=== PATIENT | female | born 1945 | race Two or more races ===

== ENCOUNTER 2017-09-24 07:08 | Outpatient (CLI) | payer OTHER ==
[~2017-09-24 07:08] MED LIST: ANTIVERT25 M1 PO; ASPIR-LOW81 MG PO; DILTIAZEM 24HR240 M1 PO; LEVOTHROID50 MCG PO; LOSARTAN-HCTZ1 EACH PO; NEURONTIN300 MG PO; PLAVIX75 MG PO; PRILOSEC40 MG PO
== END 2017-09-24 08:17 | disposition home or self-care (01) ==
LOC: NUCLEAR 07:08
DX: I20.1 Angina pectoris with documented spasm (principal)
CPT/HCPCS: 78452; 93017; A9500; J0153

== ENCOUNTER 2017-12-29 13:17 | Emergency (ER) | payer OTHER ==
[~2017-12-29] VITALS: Ht 172.7 cm; Wt 65.8 kg
== END 2017-12-29 18:02 | disposition home or self-care (01) ==
LOC: ER 13:17
DX: R53.1 Weakness (principal); R06.02 Shortness of breath; D64.89 Other specified anemias

== ENCOUNTER 2018-01-05 09:02 | Outpatient (CLI) | payer OTHER | END 2018-01-05 09:11 | disposition home or self-care (01) | LOC: NUCLEAR 09:02 | DX: I20.1 Angina pectoris with documented spasm (principal) ==

== ENCOUNTER 2018-01-06 13:04 | Inpatient (IN) | payer OTHER ==
[~2018-01-06] VITALS: Ht 172.7 cm; Wt 68.0 kg
[2018-02-03] MEDS ORDERED: NEURONTIN300 MG PO (11:34)
[2018-02-03] MEDS ORDERED: PLAVIX75 MG PO (11:34)
[2018-02-03] MEDS ORDERED: PRILOSEC OTC20 MG PO (11:34)
[2018-02-03] MEDS ORDERED: SERTRALINE HCL100 MG PO (11:34)
[2018-02-03] MEDS ORDERED: Coreg 3.125MG TABLET PO (11:34)
[2018-02-03] MEDS ORDERED: SPIRONOLACTONE50 MG PO (11:34)
[2018-02-03] MEDS ORDERED: FUROSEMIDE10 MG/1 M1 PO (11:34)
[2018-02-03] MEDS ORDERED: LOSARTAN-HCTZ1 EACH PO (11:34)
[2018-02-03] MEDS ORDERED: ASPIR-LOW81 MG PO (11:34)
== END 2018-02-03 13:17 | disposition home or self-care (01) | DRG 371 ==
LOC: ER 13:04 → SURH 20:42 → ICU 20:42 → ICU-2 20:42 → ICU 01-07 12:41 → SURH 01-22 21:46
PROC: BW25ZZZ Computerized Tomography (CT Scan) of Chest, Abdomen and Pelvis (ICD-10-PCS; 2018-01-08)
PROC: BW25YZZ Computerized Tomography (CT Scan) of Chest, Abdomen and Pelvis using Other Contrast (ICD-10-PCS; 2018-01-09)
PROC: 30233N1 Transfusion of Nonautologous Red Blood Cells into Peripheral Vein, Percutaneous Approach (ICD-10-PCS; 2018-01-09)
PROC: 3E0336Z Introduction of Nutritional Substance into Peripheral Vein, Percutaneous Approach (ICD-10-PCS; 2018-01-10)
PROC: BW25YZZ Computerized Tomography (CT Scan) of Chest, Abdomen and Pelvis using Other Contrast (ICD-10-PCS; 2018-01-18)
PROC: 0W9G30Z Drainage of Peritoneal Cavity with Drainage Device, Percutaneous Approach (ICD-10-PCS; principal; 2018-01-19)
PROC: B54MZZZ Ultrasonography of Right Upper Extremity Veins (ICD-10-PCS; 2018-01-20)
PROC: BW25Y0Z Computerized Tomography (CT Scan) of Chest, Abdomen and Pelvis using Other Contrast, Unenhanced and Enhanced (ICD-10-PCS; 2018-01-26)
DX: K35.3 Acute appendicitis with localized peritonitis (principal); I50.33 Acute on chronic diastolic (congestive) heart failure; J90 Pleural effusion, not elsewhere classified; J98.11 Atelectasis; I11.0 Hypertensive heart disease with heart failure; I25.10 Atherosclerotic heart disease of native coronary artery without angina pectoris; Z98.61 Coronary angioplasty status; Z88.0 Allergy status to penicillin; R42 Dizziness and giddiness; F41.8 Other specified anxiety disorders; D64.89 Other specified anemias; E86.0 Dehydration; R10.13 Epigastric pain; E03.8 Other specified hypothyroidism; R73.9 Hyperglycemia, unspecified; B96.29 Other Escherichia coli [E. coli] as the cause of diseases classified elsewhere; B96.89 Other specified bacterial agents as the cause of diseases classified elsewhere

== ENCOUNTER → 2018-04-10 | Emergency (ER) | payer OTHER ==
[~2018-04-10] VITALS: Ht 175.3 cm; Wt 70.3 kg
[~2018-04-10] MED LIST changes: +Coreg 3.125MG TABLET PO; +FUROSEMIDE10 MG/1 M1 PO; +PRILOSEC OTC20 MG PO; +SERTRALINE HCL100 MG PO; +SPIRONOLACTONE50 MG PO
== END | disposition home or self-care (01) ==
LOC: ER 13:36
DX: R06.02 Shortness of breath (principal)

== ENCOUNTER 2018-04-15 10:20 | Outpatient (CLI) | payer OTHER | END 2018-04-15 10:28 | disposition home or self-care (01) | LOC: NUCLEAR 10:20 | DX: I42.8 Other cardiomyopathies (principal) ==

== ENCOUNTER 2018-04-15 14:02 | Inpatient (IN) | payer OTHER ==
[2018-04-17] MEDS ORDERED: COUMADIN7.5 MG PO (11:43)
[2018-04-17] MEDS ORDERED: Coreg 6.25MG TABLET PO (11:43)
[2018-04-17] MEDS ORDERED: SPIRONOLACTONE25 MG PO (11:44)
[2018-04-17] MEDS ORDERED: CLONAZEPAM0.5 MG PO (11:45)
[2018-04-17] MEDS ORDERED: Glucophage PO (11:46)
== END 2018-04-17 14:37 | disposition home or self-care (01) | DRG 303 ==
LOC: MEDI 14:02 → MEDJ 14:02
PROC: 4A12X4Z Monitoring of Cardiac Electrical Activity, External Approach (ICD-10-PCS; principal; 2018-04-15)
DX: I51.3 Intracardiac thrombosis, not elsewhere classified (principal); I50.22 Chronic systolic (congestive) heart failure; E03.8 Other specified hypothyroidism; Z88.0 Allergy status to penicillin; Z98.61 Coronary angioplasty status; I25.5 Ischemic cardiomyopathy; F41.8 Other specified anxiety disorders; I11.0 Hypertensive heart disease with heart failure

== ENCOUNTER 2018-04-23 21:36 | Emergency (ER) | payer OTHER ==
[~2018-04-23] VITALS: Ht 175.3 cm; Wt 59.0 kg
[~2018-04-23 21:36] MED LIST changes: +CLONAZEPAM0.5 MG PO; +COUMADIN7.5 MG PO; +Coreg 6.25MG TABLET PO; +Glucophage PO; +SPIRONOLACTONE25 MG PO
== END 2018-04-24 22:56 | disposition home or self-care (01) ==
LOC: ER 21:36
DX: R06.02 Shortness of breath (principal); R09.02 Hypoxemia; R60.0 Localized edema; I50.9 Heart failure, unspecified; F41.8 Other specified anxiety disorders; T45.515A Adverse effect of anticoagulants, initial encounter; Y92.89 Other specified places as the place of occurrence of the external cause

== ENCOUNTER 2018-07-23 12:40 | Inpatient (IN) | payer OTHER ==
[~2018-07-23] VITALS: Ht 243.8 cm; Wt 5.0 kg
== END 2018-07-25 19:02 | disposition home or self-care (01) | DRG 292 ==
LOC: ER 12:40 → SEC-K 07-24 14:42 → MEDJ 07-24 14:42 → SURG 07-24 15:20 → MEDJ 07-24 15:46
PROVIDERS: ADMIT Internal Medicine Cardiovascular Disease
PROC: B24BZZZ Ultrasonography of Heart with Aorta (ICD-10-PCS; principal; 2018-07-24)
DX: I50.23 Acute on chronic systolic (congestive) heart failure (principal); A09 Infectious gastroenteritis and colitis, unspecified; I25.810 Atherosclerosis of coronary artery bypass graft(s) without angina pectoris; I11.0 Hypertensive heart disease with heart failure; Z88.0 Allergy status to penicillin; F41.8 Other specified anxiety disorders; E03.9 Hypothyroidism, unspecified; Z98.61 Coronary angioplasty status

== ENCOUNTER 2018-09-02 14:37 | Emergency (ER) | payer OTHER ==
[~2018-09-02] VITALS: Ht 175.3 cm; Wt 61.2 kg
== END 2018-09-04 17:23 | disposition home or self-care (01) ==
LOC: ER 14:37 → CPU-OBS 14:39 → ER 14:39
DX: I11.0 Hypertensive heart disease with heart failure (principal); I50.23 Acute on chronic systolic (congestive) heart failure; R06.02 Shortness of breath; R60.0 Localized edema; R07.89 Other chest pain; R06.09 Other forms of dyspnea

== ENCOUNTER 2018-11-02 13:30 | Emergency (ER) | payer OTHER ==
[~2018-11-02] VITALS: Ht 175.3 cm; Wt 65.3 kg
[2018-11-02] MEDS ORDERED: AMBIEN10 MG (14:07)
[2018-11-02] MEDS ORDERED: CARVEDILOL6.25 MG (14:08)
[2018-11-02] MEDS ORDERED: COZAAR25 MG (14:09)
[2018-11-02] MEDS ORDERED: PLAVIX75 MG (14:10)
== END 2018-11-03 09:23 | disposition home or self-care (01) ==
LOC: ER 13:30
DX: R18.8 Other ascites (principal); R14.0 Abdominal distension (gaseous); R19.5 Other fecal abnormalities; T45.514A Poisoning by anticoagulants, undetermined, initial encounter; Y92.89 Other specified places as the place of occurrence of the external cause